=== PATIENT | male | born 1940 | race Caucasian/White ===

== ENCOUNTER 2017-01-11 13:44 | Emergency (ER) | payer OTHER, BC ==
[~2017-01-11] VITALS: Ht 170.2 cm; Wt 74.8 kg
[2017-01-11 13:53] VITALS: BP 164/94; PULSE 66; RESP 18; TEMP 98.3; O2SAT 97
[2017-01-11] MEDS ORDERED: BACITRACIN 1 GM OINT TP ONE (15:00)
[2017-01-11 15:40] VITALS: BP 164/94; PULSE 66; RESP 18; TEMP 98.3; O2SAT 97
== END 2017-01-11 15:40 | disposition home or self-care (01) ==
LOC: MERGE 13:44 → SED 13:44
DX: S51.811D Laceration without foreign body of right forearm, subsequent encounter (principal); I10 Essential (primary) hypertension; X58.XXXD Exposure to other specified factors, subsequent encounter; Y92.89 Other specified places as the place of occurrence of the external cause; Y99.8 Other external cause status
CPT/HCPCS: 99282

== ENCOUNTER 2017-03-18 09:23 | Outpatient (CLI) | payer OTHER, BC ==
[2017-03-18 10:19] LABS: BASOPHILS % (AUTO) 0.7 % (0.0-2.0); EOSINOPHILS # (AUTO) 0.1 K/uL (0.0-0.4); EOSINOPHILS % (AUTO) 1.1 % (0.0-4.0); HEMATOCRIT 47.1 % (36-54); HEMOGLOBIN 15.2 g/dL (14.0-18.0); LYMPHOCYTES # (AUTO) 1.2 K/uL (1.0-5.5); LYMPHOCYTES % (AUTO) 20.4 % (20.5-51.5); MEAN CORPUSCULAR HEMOGLOBIN 30 pg (27-31); MEAN CORPUSCULAR HGB CONC 32 % (32-36); MEAN CORPUSCULAR VOLUME 92 fL (79.0-98.0); MONOCYTES # (AUTO) 0.4 K/uL (0.0-1.0); MONOCYTES % (AUTO) 7.4 % (1.7-9.3); NEUTROPHILS # (AUTO) 4.2 K/uL (1.8-7.7); NEUTROPHILS % (AUTO) 70.4 % (40.0-70.0); PLATELET COUNT (AUTO) 198 K/uL (130-430); RED BLOOD CELL COUNT(AUTO) 5.15 MIL/uL (4.2-6.2); RED CELL DISTRIBUTION WIDTH 12.7 % (9.0-15.0); WHITE BLOOD COUNT (AUTO) 5.9 K/uL (4.8-10.8)
[2017-03-18 11:01] LABS: ANION GAP 8 (5-15); CALCIUM 9.3 mg/dL (8.4-11.0); CHLORIDE 104 mmol/L (98-107); CREATININE 0.94 mg/dL (0.55-1.30); POTASSIUM 3.9 mmol/L (3.5-5.1); SODIUM SERUM 139 mmol/L (136-145); UREA NITROGEN, BLOOD 20 mg/dL (8-21)
[2017-03-18 11:06] LABS: ALANINE AMINOTRANSFERASE 19 U/L (12-78); ALBUMIN 4.3 g/dL (3.4-4.8); CHOLESTEROL 239 mg/dL (<200); HDL CHOLESTEROL 68 mg/dL (>45); LDL CHOLESTEROL 160 mg/dL (<100); TOTAL BILIRUBIN 0.8 mg/dL (0.0-1.0); TRIGLYCERIDES 51 mg/dL (30-150)
[2017-03-18 11:15] LABS: GLUCOSE 93 mg/dL (70-99)
[2017-03-18 11:16] LABS: ASPARTATE AMINOTRANSFERASE 17 U/L (10-37)
== END 2017-03-18 18:41 | disposition home or self-care (01) ==
LOC: SLB 09:23
PROVIDERS: ATTEND Internal Medicine
DX: Z00.01 Encounter for general adult medical examination with abnormal findings (principal); E55.9 Vitamin D deficiency, unspecified; R33.9 Retention of urine, unspecified; R79.89 Other specified abnormal findings of blood chemistry; R35.0 Frequency of micturition
CPT/HCPCS: 36415; 80053; 80061; 82306; 82607; 84153; 85025

== ENCOUNTER 2017-04-19 09:13 | Emergency (ER) | payer OTHER, BC ==
[~2017-04-19] VITALS: Ht 167.6 cm; Wt 79.4 kg
[2017-04-19 09:21] VITALS: BP_SYST 156
[2017-04-19 10:41] VITALS: BP_SYST 148
== END 2017-04-19 10:41 | disposition home or self-care (01) ==
LOC: SED 09:13
DX: S60.862A Insect bite (nonvenomous) of left wrist, initial encounter (principal); L03.114 Cellulitis of left upper limb; I10 Essential (primary) hypertension; Z95.1 Presence of aortocoronary bypass graft; W57.XXXA Bitten or stung by nonvenomous insect and other nonvenomous arthropods, initial encounter; Y93.89 Activity, other specified; Y92.096 Garden or yard of other non-institutional residence as the place of occurrence of the external cause; Y99.8 Other external cause status
CPT/HCPCS: 99283

== ENCOUNTER 2017-06-17 08:55 | Outpatient (CLI) | payer OTHER, BC ==
[2017-06-17 10:30] LABS: ALANINE AMINOTRANSFERASE 15 U/L (12-78); ALBUMIN 3.9 g/dL (3.4-4.8); ANION GAP 3 (5-15); ASPARTATE AMINOTRANSFERASE 16 U/L (10-37); CALCIUM 9.2 mg/dL (8.4-11.0); CHLORIDE 107 mmol/L (98-107); CHOLESTEROL 164 mg/dL (<200); CREATININE 1.02 mg/dL (0.55-1.30); GLUCOSE 96 mg/dL (70-99); HDL CHOLESTEROL 59 mg/dL (>45); LDL CHOLESTEROL 94 mg/dL (<100); POTASSIUM 4.1 mmol/L (3.5-5.1); SODIUM SERUM 142 mmol/L (136-145); TOTAL BILIRUBIN 0.7 mg/dL (0.0-1.0); TRIGLYCERIDES 63 mg/dL (30-150); UREA NITROGEN, BLOOD 19 mg/dL (8-21)
== END 2017-06-17 20:11 | disposition home or self-care (01) ==
LOC: SLB 08:55
PROVIDERS: ATTEND Internal Medicine
DX: I10 Essential (primary) hypertension (principal); E78.4 Other hyperlipidemia; R79.89 Other specified abnormal findings of blood chemistry
CPT/HCPCS: 36415; 80053; 80061; 83036

== ENCOUNTER 2017-11-27 05:15 | Day surgery (SDC) | payer OTHER, BC ==
[2017-11-25 10:45] LABS: BASOPHILS # (AUTO) 0.1 K/uL (0.0-0.2); BASOPHILS % (AUTO) 1.2 % (0.0-2.0); EOSINOPHILS # (AUTO) 0.1 K/uL (0.0-0.4); EOSINOPHILS % (AUTO) 1.6 % (0.0-4.0); HEMATOCRIT 42.8 % (36-54); HEMOGLOBIN 14.6 g/dL (14.0-18.0); LYMPHOCYTES # (AUTO) 1.3 K/uL (1.0-5.5); LYMPHOCYTES % (AUTO) 27.1 % (20.5-51.5); MEAN CORPUSCULAR HEMOGLOBIN 31 pg (27-31); MEAN CORPUSCULAR HGB CONC 34 % (32-36); MEAN CORPUSCULAR VOLUME 90 fL (79.0-98.0); MONOCYTES # (AUTO) 0.3 K/uL (0.0-1.0); MONOCYTES % (AUTO) 7.4 % (1.7-9.3); NEUTROPHILS # (AUTO) 2.9 K/uL (1.8-7.7); NEUTROPHILS % (AUTO) 62.7 % (40.0-70.0); PLATELET COUNT (AUTO) 142 K/uL (130-430); RED BLOOD CELL COUNT(AUTO) 4.76 MIL/uL (4.2-6.2); RED CELL DISTRIBUTION WIDTH 14.2 % (9.0-15.0); WHITE BLOOD COUNT (AUTO) 4.7 K/uL (4.8-10.8)
[2017-11-25 10:47] LABS: ANION GAP 5 (5-15); CALCIUM 8.7 mg/dL (8.4-11.0); CHLORIDE 108 mmol/L (98-107); GLUCOSE 87 mg/dL (70-99); POTASSIUM 4.3 mmol/L (3.5-5.1); SODIUM SERUM 141 mmol/L (136-145); UREA NITROGEN, BLOOD 17 mg/dL (8-21)
[~2017-11-27] VITALS: Ht 167.6 cm; Wt 74.8 kg
[2017-11-27 05:42] VITALS: BP_SYST 210
[2017-11-27] MEDS ORDERED: CYAN50008 PO (09:12)
[2017-11-27] MEDS ORDERED: LIP10 PO (09:12)
[2017-11-27] MEDS ORDERED: DOXA2TAB PO (09:12)
[2017-11-27] MEDS ORDERED: CARV3.1246 PO (09:12)
[2017-11-27] MEDS ORDERED: ASA81 PO (09:12)
[2017-11-27] MEDS ORDERED: MULT-1189 PO (09:12)
[2017-11-27] MEDS ORDERED: CHOL200026 PO (09:12)
== END 2017-11-27 23:37 | disposition home or self-care (01) ==
LOC: SMU 05:15 → SDS 05:15
PROVIDERS: ATTEND Specialist
DX: L72.3 Sebaceous cyst (principal); Z53.8 Procedure and treatment not carried out for other reasons; Z98.890 Other specified postprocedural states; Z95.1 Presence of aortocoronary bypass graft
CPT/HCPCS: 36415; 71046; 80048; 85025; J7120

== ENCOUNTER 2017-11-27 06:47 | Emergency (ER) | payer OTHER, BC ==
[~2017-11-27] VITALS: Ht 167.6 cm; Wt 77.1 kg
--- NOTE | 2017-11-27 06:47 | NUR ---
Patient to ER bed 8 to gown for evaluation. Side rails up.
[2017-11-27 06:50] VITALS: BP_SYST 223
--- NOTE | 2017-11-27 07:09 | NUR ---
Report received from KAITLIN Collins. All care endorsed.
--- NOTE | 2017-11-27 07:10 | NUR ---
ER Dr. Funes at bedside examining patient.
[2017-11-27] MEDS ORDERED: ASPIRIN 81 MG TAB.CHEW PO ONE (07:15)
[2017-11-27] MEDS ORDERED: LABETALOL 100 MG/ 20ML VIAL IVP ONE (07:15)
[2017-11-27 07:49] LABS: BASOPHILS % (AUTO) 0.8 % (0.0-2.0); EOSINOPHILS # (AUTO) 0.1 K/uL (0.0-0.4); EOSINOPHILS % (AUTO) 1.8 % (0.0-4.0); HEMATOCRIT 42.4 % (36-54); HEMOGLOBIN 14.1 g/dL (14.0-18.0); LYMPHOCYTES # (AUTO) 0.9 K/uL (1.0-5.5); LYMPHOCYTES % (AUTO) 19.7 % (20.5-51.5); MEAN CORPUSCULAR HEMOGLOBIN 30 pg (27-31); MEAN CORPUSCULAR HGB CONC 33 % (32-36); MEAN CORPUSCULAR VOLUME 91 fL (79.0-98.0); MONOCYTES # (AUTO) 0.4 K/uL (0.0-1.0); MONOCYTES % (AUTO) 9.2 % (1.7-9.3); NEUTROPHILS # (AUTO) 3.4 K/uL (1.8-7.7); NEUTROPHILS % (AUTO) 68.5 % (40.0-70.0); PLATELET COUNT (AUTO) 129 K/uL (130-430); RED BLOOD CELL COUNT(AUTO) 4.65 MIL/uL (4.2-6.2); RED CELL DISTRIBUTION WIDTH 13.9 % (9.0-15.0); WHITE BLOOD COUNT (AUTO) 4.8 K/uL (4.8-10.8)
[2017-11-27 07:54] LABS: ANION GAP 9 (5-15); CALCIUM 8.8 mg/dL (8.4-11.0); CHLORIDE 107 mmol/L (98-107); CREATININE 1.08 mg/dL (0.55-1.30); GLUCOSE 111 mg/dL (70-99); POTASSIUM 3.7 mmol/L (3.5-5.1); SODIUM SERUM 142 mmol/L (136-145); UREA NITROGEN, BLOOD 17 mg/dL (8-21)
[2017-11-27 07:58] LABS: PROTHROMBIN TIME 10.1 SECS (9.5-12.5)
[2017-11-27 07:59] LABS: ALANINE AMINOTRANSFERASE 10 U/L (12-78); ALBUMIN 3.7 g/dL (3.4-4.8); ASPARTATE AMINOTRANSFERASE 12 U/L (10-37); TOTAL BILIRUBIN 0.6 mg/dL (0.0-1.0)
[2017-11-27] MEDS ORDERED: ACETAMINOPHEN 325 MG TABLET PO ONE (08:30)
[2017-11-27] MEDS ORDERED: NITROGLYCERIN 1 INCH (GM) OINT. TP ONE (08:30)
--- NOTE | 2017-11-27 08:34 | NUR ---
Medication was given, pt tolerated well. No adverse reaction, will continue to monitor.
[2017-11-27] MEDS ORDERED: CYAN50008 PO (09:12)
[2017-11-27] MEDS ORDERED: DOXA2TAB PO (09:12)
[2017-11-27] MEDS ORDERED: CHOL200026 PO (09:12)
[2017-11-27] MEDS ORDERED: CARV3.1246 PO (09:12)
[2017-11-27] MEDS ORDERED: ASA81 PO (09:12)
[2017-11-27] MEDS ORDERED: LIP10 PO (09:12)
[2017-11-27] MEDS ORDERED: MULT-1189 PO (09:12)
[2017-11-27] MEDS ORDERED: ISOSORBIDE DINITRATE 20 MG TABLET (ISORDIL) PO ONE (09:30)
--- NOTE | 2017-11-27 09:33 | NUR ---
Assisted patient to restroom and back to hospital bed, with steady gait. No acute distress. Will continue to monitor.
[2017-11-27 10:08] VITALS: BP_SYST 162
== END 2017-11-27 10:08 | disposition home or self-care (01) ==
LOC: SED 06:47
DX: I10 Essential (primary) hypertension (principal); E78.5 Hyperlipidemia, unspecified; K21.9 Gastro-esophageal reflux disease without esophagitis; N40.1 Benign prostatic hyperplasia with lower urinary tract symptoms; Z79.82 Long term (current) use of aspirin; Z79.899 Other long term (current) drug therapy
CPT/HCPCS: 36415; 80053; 83880; 84484; 85025; 85610; 85730; 87086; 93005; 96374; 99285; J3490

== ENCOUNTER → 2018-01-25 | Outpatient (CLI) | payer OTHER, BC ==
[~2018-01-25] MED LIST: ASA81 PO; CARV3.1246 PO; CHOL200026 PO; CYAN50008 PO; DOXA2TAB PO; LIP10 PO; MULT-1189 PO
== END | disposition home or self-care (01) ==
LOC: EDSTATUS 07:30 → SRD 08:48
PROVIDERS: ATTEND Orthopaedic Surgery
DX: Z01.818 Encounter for other preprocedural examination (principal); R05 Cough; M47.899 Other spondylosis, site unspecified
CPT/HCPCS: 71046-TC; 87081

== ENCOUNTER 2018-02-08 09:30 | Inpatient (IN) | payer OTHER, BC ==
[~2018-02-08] VITALS: Ht 170.2 cm; Wt 74.8 kg
[2018-02-17 13:35] LABS: BASOPHILS % (AUTO) 0.8 % (0.0-2.0); EOSINOPHILS # (AUTO) 0.1 K/uL (0.0-0.4); EOSINOPHILS % (AUTO) 1.5 % (0.0-4.0); HEMATOCRIT 44.3 % (36-54); HEMOGLOBIN 13.9 g/dL (14.0-18.0); LYMPHOCYTES # (AUTO) 1.1 K/uL (1.0-5.5); LYMPHOCYTES % (AUTO) 18.1 % (20.5-51.5); MEAN CORPUSCULAR HEMOGLOBIN 30 pg (27-31); MEAN CORPUSCULAR HGB CONC 31 % (32-36); MEAN CORPUSCULAR VOLUME 94 fL (79.0-98.0); MONOCYTES # (AUTO) 0.5 K/uL (0.0-1.0); MONOCYTES % (AUTO) 8.7 % (1.7-9.3); NEUTROPHILS # (AUTO) 4.4 K/uL (1.8-7.7); NEUTROPHILS % (AUTO) 70.9 % (40.0-70.0); PLATELET COUNT (AUTO) 160 K/uL (130-430); RED CELL DISTRIBUTION WIDTH 13.4 % (9.0-15.0); WHITE BLOOD COUNT (AUTO) 6.1 K/uL (4.8-10.8)
[2018-02-17 13:46] LABS: ANION GAP 8 (5-15); CALCIUM 9.3 mg/dL (8.4-11.0); CHLORIDE 108 mmol/L (98-107); CREATININE 1.09 mg/dL (0.55-1.30); GLUCOSE 94 mg/dL (70-99); POTASSIUM 3.7 mmol/L (3.5-5.1); SODIUM SERUM 142 mmol/L (136-145); UREA NITROGEN, BLOOD 25 mg/dL (8-21)
[2018-02-17 13:48] LABS: BILIRUBIN,URINE 1+ (NEGATIVE); CLARITY/URINE CLEAR (CLEAR); COLOR,URINE YELLOW (YELLOW); GLUCOSE,URINE NEGATIVE (NEGATIVE); KETONES,URINE TRACE (NEGATIVE); LEUKOCYTE ESTERASE ,URINE NEGATIVE (NEGATIVE); NITRITE, URINE NEGATIVE (NEGATIVE); PH,URINE 5.5 (5.0-8.0); PROTEIN URINE NEGATIVE (NEGATIVE); UROBILINOGEN,URINE 0.2 (0.2-1.0)
[2018-02-17 13:50] LABS: PROTHROMBIN TIME 10.5 SECS (9.5-12.5)
[2018-02-17 13:51] LABS: ALANINE AMINOTRANSFERASE 9 U/L (12-78); ALBUMIN 3.9 g/dL (3.4-4.8); ASPARTATE AMINOTRANSFERASE 14 U/L (10-37)
[2018-02-17 13:52] LABS: BLOOD, URINE TRACE (NEGATIVE)
[2018-02-17 14:13] LABS: BACTERIA,URINE None Seen /HPF (None Seen); MUCUS,URINE 2+ /LPF (None Seen); WBC,URINE 0-3 /HPF (0-3)
[2018-02-18] MEDS ORDERED: LOSA25TA3 PO (11:38)
[2018-02-18] MEDS ORDERED: LIP20 PO (11:38)
[2018-02-22] MEDS ORDERED: ACETAMINOPHEN 500 MG TABLET PO ONE (07:00)
[2018-02-22] MEDS ORDERED: CELECOXIB 200 MG CAPSULE PO ONE (07:00)
[2018-02-22] MEDS ORDERED: oxyCODONE HCL 10 MG TAB.ER.12H PO ONE ×2 (07:00→07:02)
[2018-02-22] MEDS ORDERED: CELECOXIB 200 MG CAPSULE ONE (07:00)
[2018-02-22] MEDS ORDERED: GABAPENTIN 300 MG CAPSULE PO ONE (07:00)
[2018-02-22] MEDS ORDERED: GABAPENTIN 300 MG CAPSULE ONE (07:00)
[2018-02-22] MEDS ORDERED: CEFAZOLIN 2 GM IVPB PREMIX 50 ML IV ONE ×2 (07:00→08:05)
[2018-02-22] MEDS ORDERED: NACL 0.9% 1,000 ML IV ONE (07:00)
[2018-02-22] MEDS ORDERED: TRANEXAMIC ACID 650 MG TABLET PO ONE (07:00)
[2018-02-22] MEDS ORDERED: POLYMYXIN 500,000/BACIT.10,000 UNITS in NS IRR 1 L IR ONE (07:01)
[2018-02-22] MEDS ORDERED: ACETAMINOPHEN 500 MG TABLET ONE (07:01)
[2018-02-22] MEDS ORDERED: TRANEXAMIC ACID 650 MG TABLET ONE (07:03)
[2018-02-22] MEDS ORDERED: VANCOMYCIN HCL 1000 MG/VIAL IV ONE (08:05)
[2018-02-22] MEDS ORDERED: NS 50 ML BAG IV ONE (08:05)
[2018-02-22] MEDS ORDERED: MORPHINE SULFATE 10MG/10ML PF AMP EP ONE (08:05)
[2018-02-22] MEDS ORDERED: LR 1,000 ML IV.SOLN IV ONE (08:05)
[2018-02-22] MEDS ORDERED: ROPIVACAINE 40 MG/20 ML AMP EP ONE (08:05)
[2018-02-22] MEDS ORDERED: MIDAZOLAM HCL 5 MG/5 ML VIAL IVP ONE (08:05)
[2018-02-22] MEDS ORDERED: TRANEXAMIC ACID 1,000 MG/10 ML VIAL IV ONE (08:05)
[2018-02-22] MEDS ORDERED: BUPIVACAINE /DEX PF 0.75% SPINAL 2 ML AMP INJ ONE (08:05)
[2018-02-22] MEDS ORDERED: EPINEPHrine 1 MG/ML AMP IV ONE (08:05)
[2018-02-22] MEDS ORDERED: KETOROLAC TROMETHAMINE 30 MG VIAL IVP ONE (08:05)
[2018-02-22] MEDS ORDERED: ROPIVACAINE 0.2% (NAROPIN) PF SOLUTION 100 ML BOTTLE EP ONE (08:05)
[2018-02-22] MEDS ORDERED: PROPOFOL 200MG/ 20ML VIAL (DIPRIVAN) IV ONE (08:05)
[2018-02-22] MEDS: ROPIVACAINE 0.2% 550 ML INJ SCH (08:53)
[2018-02-22] MEDS ORDERED: fentaNYL CITRATE/PF 100 MCG/2 ML AMP IVP PRN ×2 (09:00)
[2018-02-22] MEDS ORDERED: OXYCODONE/ACETAMINOPHEN *10*mg/325 mg TABLET PO PRN (09:00)
[2018-02-22] MEDS ORDERED: KETOROLAC TROMETHAMINE 30 MG VIAL IVP PRN (09:00)
[2018-02-22] MEDS ORDERED: NALBUPHINE HCL 10 MG/ML AMP IVP PRN (09:00)
[2018-02-22] MEDS ORDERED: ONDANSETRON HCL 4 MG/2 ML VIAL IVP PRN ×3 (09:00→12:00)
[2018-02-22] MEDS ORDERED: DIPHENHYDRAMINE INJ 50 MG/ML VIAL IVP PRN (09:00)
[2018-02-22] MEDS ORDERED: ROPIVACAINE 0.2% 550 ML INJ SCH (10:34)
[2018-02-22] MEDS ORDERED: KETOROLAC TROMETHAMINE 15 MG VIAL IVP PRN ×2 (10:45)
[2018-02-22] MEDS ORDERED: MORPHINE 4 MG/ML INJ. SYRINGE IVP PRN (10:45)
[2018-02-22] MEDS: hydrALAZINE HCL 20 MG/ML VIAL IVP ONE ×2 (11:40→12:38)
[2018-02-22] MEDS ORDERED: hydrALAZINE HCL 20 MG/ML VIAL ONE (11:49)
--- NOTE | 2018-02-22 11:55 | NUR ---
Initial Note patient transferred from PACU at this time, no complaints of pain, neurovascular checks within normal limits at this time, breathing unlabored on room air, slade draining via gravity, educated patient on use of call light for assistance, verbalized understanding, safety precautions remain in place, call light and bedside table left within reach, will continue to monitor patient
[2018-02-22] MEDS ORDERED: PROMETHAZINE HCL 25 MG/ML AMP IVP PRN (12:00)
[2018-02-22] MEDS ORDERED: DIPHENHYDRAMINE HCL 25 MG CAPSULE PO PRN (12:00)
--- NOTE | 2018-02-22 12:30 | NUR ---
PT Iker at Bedside educated patient on plan of care, verbalized understanding, patient does not want pain meds before ambulation, educated him on pain management, verbalized understanding, informed him to let me know when he wants pain meds, verbalized understanding, PT will be back to assess patient
[2018-02-22] MEDS: CEFAZOLIN 1 GM IVPB PREMIX 50 ML IV SCH ×2 (12:44→20:00)
[2018-02-22] MEDS: D5LR 1,000 ML IV SCH ×2 (12:44→23:38)
--- NOTE | 2018-02-22 12:54 | NUR ---
Antibiotics hung at this time, educated patient regarding med, verbalized understanding, site remains patent at this time, family at bedside, safety precautions remain in place, call light and bedside table left within reach, will continue to monitor patient
--- NOTE | 2018-02-22 13:43 | NUR ---
Physical Therapy at bedside at this time, will speak to Iker PT after session
--- NOTE | 2018-02-22 14:19 | NUR ---
Discharge Planning: DCP faxed pt referral to [facility] ([phone] p [phone]); Berto [facility] stated insurance is being verified, 3 in 1 commode not covered by medicare, will research low cost options.
--- NOTE | 2018-02-22 14:36 | NUR ---
Pain Meds/Zofran administered at this time, educated patient regarding medication and potential side effects, verbalized understanding, site remains patent, family remains at bedside, educated patient on use of call light for assistance, verbalized understanding, call light and bedside table left within reach, will continue to monitor patient
[2018-02-22 14:38] VITALS: BP_SYST 165
--- NOTE | 2018-02-22 14:40 | NUR ---
Incentive Spirometer educated patient regarding use, verbalized understanding, was able to reach 2500 mL, educated patient on frequency of use, verbalized understanding, left device within reach
[2018-02-22] MEDS: ACETAMINOPHEN 500 MG TABLET PO SCH ×2 (14:49→20:40)
[2018-02-22 15:42] VITALS: BP_SYST 165
--- NOTE | 2018-02-22 16:01 | NUR ---
Family At bedside at this time, patient resting in bed, awake and alert, stated pain is controlled at this time, CPM machine on, slade draining via gravity, no other needs at this time, educated patient on use of call light for assistance, verbalized understanding, call light and bedside table left within reach, will continue to monitor patient
[2018-02-22] MEDS ORDERED: RIVAROXABAN 10 MG TABLET PO ONE (16:30)
--- NOTE | 2018-02-22 16:49 | NUR ---
Dr. Shafer Rounds at this time
--- NOTE | 2018-02-22 18:56 | NUR ---
Closing Note patient resting in bed, CPM machine on, polar ice on and running, slade draining via gravity, IV site in tact, patient denies pain at this time, breathing unlabored on room air, neurovascular checks within normal limits, safety precautions remain in place, bedside table and call light left within reach, will endorse to training program developer nurse
--- NOTE | 2018-02-22 20:00 | NUR ---
Opening notes Pt AAOx4. VSS. No acute distress noted. Pt c/o R. knee post op sharp pain 10/20, medicated with Oxycodone 10mg PO as needed. Neurochecks intact, pt able to wiggle toes, warm to touch, good cap refill. CPM on. L. leg SCD on, polar machine on. Pt on Q-pump at 8ml/hr. IV fluids infusing at 100ml/hr as ordered left wrist 20G no s/s infiltration noted. Fuentes cath to gravity noted with dark yellow urine. Call light within reach. Bed low, locked, side rails up x3. Will continue to monitor.
[2018-02-22 20:05] VITALS: BP_SYST 142
[2018-02-22] MEDS: oxyCODONE HCL 5 MG TABLET PO PRN ×2 (20:07→23:39)
[2018-02-22] MEDS: MAGNESIUM OXIDE 400 MG TABLET PO SCH (20:38)
[2018-02-22] MEDS: CELECOXIB 200 MG CAPSULE PO SCH (20:41)
[2018-02-22] MEDS: GABAPENTIN 300 MG CAPSULE PO SCH (20:41)
--- NOTE | 2018-02-22 20:42 | NUR ---
Incentive spirometer Encouraged pt to use I.S. 10x per hour while awake. Pt demonstrated understanding 2500ml, tolerated well. To monitor.
[2018-02-22] MEDS: CARVEDILOL 3.125 MG TABLET (COREG) PO SCH (20:43)
[2018-02-22] MEDS ORDERED: SENNOSIDES 8.6 MG TABLET PO PRN (21:00)
[2018-02-22] MEDS ORDERED: DOXAZOSIN MESYLATE 2 MG TABLET PO SCH (21:00)
[2018-02-22 22:45] VITALS: BP_SYST 147
--- NOTE | 2018-02-22 23:30 | NUR ---
CPM off/Pain mgmt Pt awake, watching TV. No s/s distress noted. CPM off at this time. Pillow placed under R. heel. Neurovasc check intact, pt able to move toes, good cap refill, warm to touch. Rajinder heel protectors on. Polar ice on. L. leg SCD in place. Pt c/o 09/20 pain, medicated with Oxycodone 5mg PO as needed. IVF infusing as ordered L. wrist 20G no s/s infiltration noted. Call light within reach. To monitor.
--- NOTE | 2018-02-23 00:29 | NUR ---
ADMISSION NOTE Received patient from ER via gurney. Patient admitted with diagnosis of Chest Pain to Rule Out UT. Patient is awake, alert, oriented X 3. Patient oriented to hospital room, call light, toileting, pain management and safety-teach back done. Patient informed that KAITLIN Louis will be primary nurse and that their room number is 103A. Personal belongings checked and Belongings List documented. Call light within reach. Addendum: 02/23/18 at 0035 by Benny España RN Disregard above note. Note for another patient.
--- NOTE | 2018-02-23 00:50 | NUR ---
Rounds Pt asleep. No s/s of distress noted. IVF infusing as ordered. Safety measures in place. Call light within reach. To monitor.
--- NOTE | 2018-02-23 02:40 | NUR ---
Rounds Pt asleep. No s/s distress noted. IV fluids infusing as ordered L. wrist 20G no infiltration noted. R. heel maintained elevated on pillow. Call light within reach. Will continue to monitor.
[2018-02-23] MEDS: CEFAZOLIN 1 GM IVPB PREMIX 50 ML IV SCH (03:28)
--- NOTE | 2018-02-23 04:50 | NUR ---
Rounds Pt asleep, easily arousable. Pt states pain is ok at this time. Neurovasc check intact. IVF infusing as ordered L. wrist 20G no s/s infiltration noted. R. heel maintained floated on a pillow. Call light within reach. Will continue to monitor.
[2018-02-23] MEDS: oxyCODONE HCL 5 MG TABLET PO PRN ×2 (06:08→21:31)
--- NOTE | 2018-02-23 06:10 | NUR ---
Closing notes Pt AAOx4. Pt c/o 09/20 R. knee pain. Medicated with Oxycodone 5mg PO as needed. Pt using I.S. 10x while awake. Tolerated well. Encouraged pt to drink more fluids. Pt agreeable. Fuentes cath emptied approx 200 dark miguel urine. R. heel maintained elevated on pillow. L. SCD in place. Polar ice on. Call light within reach. To endorse to AM nurse.
[2018-02-23 06:27] LABS: BASOPHILS % (AUTO) 0.2 % (0.0-2.0); EOSINOPHILS # (AUTO) 0.1 K/uL (0.0-0.4); EOSINOPHILS % (AUTO) 0.8 % (0.0-4.0); HEMATOCRIT 37.4 % (36-54); HEMOGLOBIN 12.5 g/dL (14.0-18.0); LYMPHOCYTES # (AUTO) 0.6 K/uL (1.0-5.5); MEAN CORPUSCULAR HEMOGLOBIN 31 pg (27-31); MEAN CORPUSCULAR HGB CONC 34 % (32-36); MEAN CORPUSCULAR VOLUME 94 fL (79.0-98.0); MONOCYTES % (AUTO) 11.4 % (1.7-9.3); NEUTROPHILS # (AUTO) 6.8 K/uL (1.8-7.7); NEUTROPHILS % (AUTO) 80.6 % (40.0-70.0); PLATELET COUNT (AUTO) 133 K/uL (130-430); RED BLOOD CELL COUNT(AUTO) 3.99 MIL/uL (4.2-6.2); RED CELL DISTRIBUTION WIDTH 13.6 % (9.0-15.0); WHITE BLOOD COUNT (AUTO) 8.5 K/uL (4.8-10.8)
[2018-02-23 06:31] LABS: ANION GAP 4 (5-15); CALCIUM 8.7 mg/dL (8.4-11.0); CHLORIDE 108 mmol/L (98-107); CREATININE 0.94 mg/dL (0.55-1.30); GLUCOSE 130 mg/dL (70-99); POTASSIUM 3.6 mmol/L (3.5-5.1); SODIUM SERUM 140 mmol/L (136-145); UREA NITROGEN, BLOOD 23 mg/dL (8-21)
--- NOTE | 2018-02-23 07:55 | NUR ---
INITIAL NOTE RECEIVED PT IN BED, NO S/S OF DISTRESS OR SOB NOTED, PT HAS NO C/O PAIN AT THIS TIME, PT IN STABLE CONDITION, PT AAOX4, VERBAL, IV CATHETER PATENT, NO SIGNS OF INFECTION OR INFILTRATION NOTED, RUNNING IV FLUIDS ORDERED. BED AT LOWEST POSITION, CALL LIGHT WITHIN REACH, WILL CONTINUE TO MONITOR PT FOR ANY CHANGES, FALL AND SAFETY PRECAUTIONS IN PLACE. EDUCATED PT TO USE INCENTIVE SPIROMETER, PT TO USE 10 TIMES AN HOUR WHILE AWAKE, PT VERBALIZED UNDERSTANDING AND RETURN DEMONSTRATED, PT AT 2500ML. PT HAS AN ON Q PUMP ON RIGHT KNEE RUNNING AT 8ML/HR. RIGHT KNEE INCISION CLEAN AND DRY, PT ABLE TO MOVE TOES ON RIGHT FOOT, SENSATION PRESENT, CAPILLARY REFILL LESS THAN 3 SECONDS, PULSE PALPABLE, NO PARALYSIS OR TINGLING PER PT. Addendum: 02/23/18 at 0950 by Santa Vernon RN POLAR ICE IN PLACE AND TRAPEZE FOR BED MOBILITY
[2018-02-23 08:31] VITALS: BP_SYST 156
[2018-02-23] MEDS: MAGNESIUM OXIDE 400 MG TABLET PO SCH ×2 (08:32→21:30)
[2018-02-23] MEDS: CARVEDILOL 3.125 MG TABLET (COREG) PO SCH ×2 (08:33→21:30)
[2018-02-23] MEDS: CYANOCOBALAMIN 1000 mCg TABLET PO SCH (08:34)
[2018-02-23] MEDS: MULTIVITS,CA,MINERALS/IRON/FA 1 TABLET PO SCH (08:34)
[2018-02-23] MEDS: CHOLECALCIFEROL (VITAMIN D3) 2,000 UNIT TABLET PO SCH (08:34)
[2018-02-23] MEDS: ATORVASTATIN 20 MG TABLET PO SCH (08:34)
[2018-02-23] MEDS: CELECOXIB 200 MG CAPSULE PO SCH ×2 (08:35→21:29)
[2018-02-23] MEDS: ACETAMINOPHEN 500 MG TABLET PO SCH ×3 (08:35→21:30)
[2018-02-23] MEDS: D5LR 1,000 ML IV SCH ×2 (08:36→19:08)
[2018-02-23] MEDS: ROPIVACAINE 0.2% 550 ML INJ SCH (08:36)
[2018-02-23] MEDS ORDERED: CYANOCOBALAMIN 1000 mCg TABLET PO SCH (09:00)
[2018-02-23] MEDS ORDERED: LOSARTAN POTASSIUM 25 MG TABLET PO SCH (09:00)
--- NOTE | 2018-02-23 10:16 | NUR ---
Discharge Planning: DCP spoke to Berto at [facility] (f [phone] p [phone]); Berto stated he spoke to the family and pt, CPM and 3 in 1 commode will be delivered to home, walker will have to go through competitive bid per medicare. [facility] (f [phone] p [phone]) [facility] accepted pt. Addendum: 02/23/18 at 1101 by Patricia Cornelius DP DCP faxed [facility] (f [phone] p [phone]); for sandra. KEE to follow up Addendum: 02/23/18 at 1230 by Patricia Cornelius DP Liliya at [facility] (f [phone] p [phone]) requested Progress notes and PT notes DCP faxed Addendum: 02/23/18 at 1546 by Patricia Cornelius DP [facility] (f [phone] p [phone]) will deliver Liliya flores will call pt 02/24/2018 day of discharge.
[2018-02-23] MEDS: RIVAROXABAN 10 MG TABLET PO SCH (10:19)
--- NOTE | 2018-02-23 10:30 | NUR ---
ROUNDS PT SITTING UP IN A RECLINER CHAIR, NO S/S OF DISTRESS OR SOB NOTED, PT HAS NO C/O PAIN AT THIS TIME, PT IN STABLE CONDITION, PT TALKING TO FAMILY AT BEDSIDE, WILL CONTINUE TO MONITOR PT FOR ANY CHANGES.
--- NOTE | 2018-02-23 11:10 | NUR ---
BLOOD PRESSURE DR MAUREEN FLORES TO NOTIFY HIM OF PATIENT'S BLOOD PRESSURE 172/80, PULSE 68, AWAITING CALL BACK, PER PT HE IS ASYMPTOMATIC, NO C/O HEADACHE OR DIZZINESS. Addendum: 02/23/18 at 1156 by Santa Vernon RN MD JASMINE, AWAITING CALL BACK. Addendum: 02/23/18 at 1338 by Santa Vernon RN patients blood pressure is 142/72, 76.
[2018-02-23 12:15] VITALS: BP_SYST 172
--- NOTE | 2018-02-23 12:21 | NUR ---
ROUNDS PT IN BED, NO S/S OF DISTRESS OR SOB NOTED, PT HAS NO C/O PAIN AT THIS TIME, PT IN STABLE CONDITION, PT TALKING TO FAMILY AT BEDSIDE, WILL CONTINUE TO MONITOR PT FOR ANY CHANGES.
[2018-02-23] MEDS ORDERED: hydrALAZINE HCL 20 MG/ML VIAL IVP PRN (12:30)
[2018-02-23] MEDS ORDERED: DOXAZOSIN MESYLATE 2 MG TABLET PO ONE (14:30)
[2018-02-23 16:50] VITALS: BP_SYST 159
--- NOTE | 2018-02-23 18:30 | NUR ---
CLOSING NOTE PT IN BED, NO S/S OF DISTRESS OR SOB NOTED, PT HAS NO C/O PAIN AT THIS TIME, PT IN STABLE CONDITION, PT AAOX4, VERBAL, IV CATHETER PATENT, NO SIGNS OF INFECTION OR INFILTRATION NOTED, RUNNING IV FLUIDS ORDERED. BED AT LOWEST POSITION, CALL LIGHT WITHIN REACH, WILL ENDORSE CARE OF PT TO INCOMING NURSE, FALL AND SAFETY PRECAUTIONS IN PLACE. EDUCATED PT TO USE INCENTIVE SPIROMETER, PT AT 2500ML. PT HAS AN ON Q PUMP ON RIGHT KNEE RUNNING AT 8ML/HR. RIGHT KNEE INCISION CLEAN AND DRY, PT ABLE TO MOVE TOES ON RIGHT FOOT, SENSATION PRESENT, CAPILLARY REFILL LESS THAN 3 SECONDS, PULSE PALPABLE, NO PARALYSIS OR TINGLING PER PT.
--- NOTE | 2018-02-23 19:40 | NUR ---
Opening notes Pt AAOx4, pt watching TV, family at bedside. VSS. No acute distress noted. IVF infusing L wrist 20G no s/s infiltration noted. CPM at 70. On Q pump intact at 8ml/hr. R. knee dressing noted C/D/I. Fuentes cath to gravity with miguel urine noted. SCD L. leg in place. Call light/items within reach. To monitor.
[2018-02-23 20:05] VITALS: BP_SYST 139
--- NOTE | 2018-02-23 21:25 | NUR ---
CPM off Pt awake. CPM removed for tonight. R. Heel elevated on a pillow. Neurovasc check intact. Pt able to wiggle toes, warm to touch, palpable pedal pulse. Rajinder heel protectors on. Call light within reach. To monitor.
[2018-02-23] MEDS: LOSARTAN POTASSIUM 50 MG TABLET (COZAAR) PO SCH (21:28)
[2018-02-23] MEDS: DOXAZOSIN MESYLATE 2 MG TABLET PO SCH (21:29)
[2018-02-23] MEDS: GABAPENTIN 300 MG CAPSULE PO SCH (21:30)
--- NOTE | 2018-02-24 00:10 | NUR ---
Rounds Pt asleep, VSS. No s/s distress noted. Right heel maintained elevated on pillow. Polar ice on. Call light within reach. Will continue to monitor.
[2018-02-24 00:14] VITALS: BP_SYST 139
--- NOTE | 2018-02-24 01:10 | NUR ---
Rounds/O2 Sat Pt asleep, O2 sat goes down to 80's on the monitor, then back up to 93, no acute distress noted. Pt easily arousable. Will continue to monitor.
--- NOTE | 2018-02-24 03:25 | NUR ---
Rounds Pt asleep. No s/s distress or discomfort noted. R. heel maintained floated on a pillow. Polar ice on. Call light within reach. Will continue to monitor.
--- NOTE | 2018-02-24 05:39 | NUR ---
Rounds Pt asleep, no s/s distress noted. R. heel maintained elevated on pillow. Polar ice on. Left leg SCD in place. To monitor
--- NOTE | 2018-02-24 06:20 | NUR ---
Closing notes Pt asleep. No s/s distress noted. R. knee maintained floated on a pillow, dressing C/D/I. On Q pump dressing intact. Polar ice on. Fuentes cath to gravity. All needs met throughout the shift. Safety measures in place. Call light/items within reach. To endorse to am nurse.
[2018-02-24 06:38] LABS: ANION GAP 3 (5-15); CALCIUM 8.8 mg/dL (8.4-11.0); CHLORIDE 108 mmol/L (98-107); CREATININE 0.96 mg/dL (0.55-1.30); GLUCOSE 106 mg/dL (70-99); POTASSIUM 3.7 mmol/L (3.5-5.1); SODIUM SERUM 139 mmol/L (136-145); UREA NITROGEN, BLOOD 18 mg/dL (8-21)
[2018-02-24 07:18] LABS: BASOPHILS % (AUTO) 0.4 % (0.0-2.0); EOSINOPHILS # (AUTO) 0.1 K/uL (0.0-0.4); EOSINOPHILS % (AUTO) 0.8 % (0.0-4.0); HEMATOCRIT 35.5 % (36-54); HEMOGLOBIN 11.5 g/dL (14.0-18.0); LYMPHOCYTES # (AUTO) 0.6 K/uL (1.0-5.5); LYMPHOCYTES % (AUTO) 5.8 % (20.5-51.5); MEAN CORPUSCULAR HEMOGLOBIN 31 pg (27-31); MEAN CORPUSCULAR HGB CONC 32 % (32-36); MEAN CORPUSCULAR VOLUME 95 fL (79.0-98.0); MONOCYTES % (AUTO) 9.7 % (1.7-9.3); NEUTROPHILS # (AUTO) 8.4 K/uL (1.8-7.7); PLATELET COUNT (AUTO) 118 K/uL (130-430); RED BLOOD CELL COUNT(AUTO) 3.75 MIL/uL (4.2-6.2); RED CELL DISTRIBUTION WIDTH 13.6 % (9.0-15.0); WHITE BLOOD COUNT (AUTO) 10.1 K/uL (4.8-10.8)
--- NOTE | 2018-02-24 08:10 | NUR ---
AM note patient is resting in bed, family present at the bedside, A&Ox4, assessment completed, educated ultrasound technologist sonographer light use and to maintain pillow under the heel, educated on pain management, patient verbalized understanding, slade catheter d/c will monitor for voiding, bed at the lowest position, bed alarm on, two side rails up, call light within reach, fall and aspiration precautions in place.
[2018-02-24 08:18] VITALS: BP_SYST 165
[2018-02-24] MEDS: ROPIVACAINE 0.2% 550 ML INJ SCH (08:29)
[2018-02-24 09:19] LABS: NEUTROPHILS % (AUTO) 83.3 % (40.0-70.0)
[2018-02-24] MEDS: oxyCODONE HCL 5 MG TABLET PO PRN (09:32)
[2018-02-24] MEDS: CYANOCOBALAMIN 1000 mCg TABLET PO SCH (09:33)
[2018-02-24] MEDS: CHOLECALCIFEROL (VITAMIN D3) 2,000 UNIT TABLET PO SCH (09:33)
[2018-02-24] MEDS: LOSARTAN POTASSIUM 50 MG TABLET (COZAAR) PO SCH (09:34)
[2018-02-24] MEDS: CARVEDILOL 3.125 MG TABLET (COREG) PO SCH (09:35)
--- NOTE | 2018-02-24 09:35 | NUR ---
Medication patient is resting in the chair, is present, educated on medication uses and side effects, patient verbalized understanding and tolerated well, no other needs at this time, IV line patent and intact, call light within reach, at sitting next to him, fall and aspiration precautions in place.
[2018-02-24] MEDS: ATORVASTATIN 20 MG TABLET PO SCH (09:36)
[2018-02-24] MEDS: MULTIVITS,CA,MINERALS/IRON/FA 1 TABLET PO SCH (09:36)
[2018-02-24] MEDS: CELECOXIB 200 MG CAPSULE PO SCH (09:36)
[2018-02-24] MEDS: MAGNESIUM OXIDE 400 MG TABLET PO SCH (09:36)
[2018-02-24] MEDS: ACETAMINOPHEN 500 MG TABLET PO SCH ×2 (09:37→15:27)
[2018-02-24] MEDS: DOXAZOSIN MESYLATE 2 MG TABLET PO SCH (09:38)
[2018-02-24] MEDS ORDERED: CARVEDILOL 3.125 MG TABLET (COREG) PO ONE (09:45)
--- NOTE | 2018-02-24 10:04 | NUR ---
Medication patient is resting in his chair, son is present, education on medication use and side effect, patient verbalized understanding and tolerated well, no other needs at this time, IV line patent and intact, call light within reach, son sitting next to him, fall and aspiration precautions in place.
--- NOTE | 2018-02-24 11:24 | NUR ---
Dr. Champion rounds assessed patient at bedside, spoke with patient and his family, informed Dr. Champion that Dr. Shafer would like to speak to him regarding discharge home, possibly today. Addendum: 02/24/18 at 1140 by Kieran Davey RN Per Dr. Champion, patient is cleared for discharge.
--- NOTE | 2018-02-24 11:48 | NUR ---
Patient off the unit to physical therapy office to practice on the stairs, patient in stable condition. Addendum: 02/24/18 at 1210 by Kieran Davey RN Patient back on the unit stable condition.
--- NOTE | 2018-02-24 11:49 | NUR ---
physical therapy PT with patient, will take patient off unit to do stair exercise, patient in stable condition
[2018-02-24] MEDS ORDERED: HYDR-551 PO (11:50)
[2018-02-24] MEDS ORDERED: RIVA10TA PO (11:50)
--- NOTE | 2018-02-24 12:00 | NUR ---
physical therapy patient back on unit, in stable condition
[2018-02-24] MEDS: RIVAROXABAN 10 MG TABLET PO SCH (12:15)
--- NOTE | 2018-02-24 12:15 | NUR ---
Medication patient is resting in bed, family is present, educated on medication use and side effects, patient verbalized understanding and tolerated well, no other needs at this time, IV line patent and intact, bed at the lowest position, bed alarm on, call light within reach, two side rails up, fall and aspiration precautions in place. Addendum: 02/24/18 at 1248 by Leonarda Hernandez RN Late medication given late, had to clarify order with Dr Champion
[2018-02-24 12:53] VITALS: BP_SYST 139
[2018-02-24 14:05] VITALS: BP_SYST 139
--- NOTE | 2018-02-24 15:20 | NUR ---
Case mgt: Pt's FWW not delivered yet--I called [facility] to see when they are delivering FWW--They are asking me to fax them discharge order and they won't deliver to hospital, only to pt's home. I gave them contact info for pt so delivery can be arranged. Lisette (S.O) may have to wait for delivery at home and then come back to filler picker pt from hospital. DC order faxed to [facility] at fax#[phone]-- RN
--- NOTE | 2018-02-24 15:27 | NUR ---
Medication patient is resting in bed with family at the bedside, educated on medication use and side effects, patient verbalized understanding and tolerated well, will reassess pain prior to discharge, no other needs at this time, bed at the lowest position, bed alarm on, call light within reach, two side rails up, fall and aspiration precautions in place.
--- NOTE | 2018-02-24 16:39 | NUR ---
D/C Patient Patient given medication reconciliation form and D/C instructions. Exit Care provided. Patient verbalized understanding. MD discussed with patient the results and treatment provided. Patient in stable condition, ID band removed. IV catheter removed, intact and dressing applied, no active bleeding. Rx of xarelto and norco given. Patient educated on pain management. All belongings sent with patient.
[2018-02-24] MEDS ORDERED: CARVEDILOL 6.25 MG TABLET (COREG) PO SCH (21:00)
--- NOTE | 2018-02-25 11:01 | NUR ---
DISCHARGE FOLLOW UP PHONE CALL TURFGRASS TECHNICIAN phoned pt @ [phone]. Per pt, he is doing well. Pt's DME were delivered on 02/24 but no HH appt call received. TURFGRASS TECHNICIAN gave pt HH phone number and called [facility] to f/u. Per HH, PT is to start today 02/25 with SACHI Thompson to call pt to make an appt. Pt was able to fill his prescription meds and has an appt with Ortho MD, Dr. Shafer on 03/08. Pt will also call PCP to make an appt today. No additional questions at this time but TURFGRASS TECHNICIAN encouraged pt to call [facility] if d/c concerns arises.
== END 2018-02-24 16:41 | disposition home health service (06) | DRG 470 ==
LOC: SMU 02-22 06:12 → STU 02-22 15:35
PROVIDERS: ADMIT Orthopaedic Surgery; ATTEND Orthopaedic Surgery
PROC: 0SRC0J9 Replacement of Right Knee Joint with Synthetic Substitute, Cemented, Open Approach (ICD-10-PCS; principal; 2018-02-22 08:30)
DX: M17.11 Unilateral primary osteoarthritis, right knee (principal); M25.761 Osteophyte, right knee; Z96.652 Presence of left artificial knee joint; I10 Essential (primary) hypertension; E78.5 Hyperlipidemia, unspecified; I25.10 Atherosclerotic heart disease of native coronary artery without angina pectoris; Z95.2 Presence of prosthetic heart valve; Z95.1 Presence of aortocoronary bypass graft; Z98.49 Cataract extraction status, unspecified eye
CPT/HCPCS: 36415; 80048; 80053; 81000-TC; 85025; 85610-TC; 85730-TC; 87081; 88305; 88311; 90656; 94010; 94760; 97039; 97110-GP; 97116-GP; 97530-GP; C1713; C1776; J0171; J0360; J0690; J1885; J2250; J2274; J2405; J2704; J2795; J3370; J3490; J7120

== ENCOUNTER 2019-04-18 08:55 | Outpatient (CLI) | payer OTHER, BC ==
[~2019-04-18 08:55] MED LIST changes: -ASA81 PO; +HYDR-4273 PO; -LIP10 PO; +LIP20 PO; +LOSA25TA3 PO; +RIVA10TA PO
[2019-04-18 10:47] LABS: BASOPHILS # (AUTO) 0.1 K/uL (0.0-0.2); BASOPHILS % (AUTO) 0.9 % (0.0-2.0); EOSINOPHILS # (AUTO) 0.1 K/uL (0.0-0.4); EOSINOPHILS % (AUTO) 1.2 % (0.0-4.0); HEMATOCRIT 45.8 % (36-54); HEMOGLOBIN 15.4 g/dL (14.0-18.0); LYMPHOCYTES # (AUTO) 1.3 K/uL (1.0-5.5); LYMPHOCYTES % (AUTO) 18.4 % (20.5-51.5); MEAN CORPUSCULAR HEMOGLOBIN 30 pg (27-31); MEAN CORPUSCULAR HGB CONC 34 % (32-36); MEAN CORPUSCULAR VOLUME 90 fL (79.0-98.0); MONOCYTES # (AUTO) 0.6 K/uL (0.0-1.0); NEUTROPHILS % (AUTO) 71.5 % (40.0-70.0); PLATELET COUNT (AUTO) 151 K/uL (130-430); RED BLOOD CELL COUNT(AUTO) 5.07 MIL/uL (4.2-6.2); RED CELL DISTRIBUTION WIDTH 13.8 % (9.0-15.0); WHITE BLOOD COUNT (AUTO) 7.1 K/uL (4.8-10.8)
[2019-04-18 11:04] LABS: ALANINE AMINOTRANSFERASE 12 U/L (12-78); ANION GAP 3 (5-15); ASPARTATE AMINOTRANSFERASE 12 U/L (10-37); CALCIUM 8.8 mg/dL (8.4-11.0); CHLORIDE 107 mmol/L (98-107); CHOLESTEROL 156 mg/dL (<200); CREATININE 1.11 mg/dL (0.55-1.30); GLUCOSE 95 mg/dL (70-99); HDL CHOLESTEROL 65 mg/dL (>45); LDL CHOLESTEROL 86 mg/dL (<100); POTASSIUM 4.5 mmol/L (3.5-5.1); SODIUM SERUM 138 mmol/L (136-145); TRIGLYCERIDES 34 mg/dL (30-150); UREA NITROGEN, BLOOD 25 mg/dL (8-21)
[2019-04-18 11:13] LABS: THYROID STIMULATING HORMONE 1.14 uIu/mL (0.36-3.74)
[2019-04-19 14:38] LABS: HEMOGLOBIN A1C 5.8 % (4.8-5.6)
== END 2019-04-18 21:30 | disposition home or self-care (01) ==
LOC: SLB 08:55
PROVIDERS: ATTEND Internal Medicine
DX: Z00.01 Encounter for general adult medical examination with abnormal findings (principal); I10 Essential (primary) hypertension; I25.10 Atherosclerotic heart disease of native coronary artery without angina pectoris; I05.1 Rheumatic mitral insufficiency; E78.5 Hyperlipidemia, unspecified; E56.9 Vitamin deficiency, unspecified; E55.9 Vitamin D deficiency, unspecified; R73.9 Hyperglycemia, unspecified
CPT/HCPCS: 36415; 80053; 80061; 82306; 82607; 83036; 84443-TC; 85025